=== PATIENT | female | born 1975 | race Caucasian/White ===

== ENCOUNTER 2017-01-12 20:42 | Emergency (ER) | payer OTHER ==
[~2017-01-12] VITALS: Ht 157.5 cm; Wt 72.6 kg
--- NOTE | ~2017-01-12 | CR252 ---
[facility] A Service of [facility] & [facility] RADIOLOGY TEXT RESULTS PATIENT: GRAY BENTLEY LOCATION: CFTX : [id number] UNIT #: [id number] AGE: [address]: Rika España APRN SEX: F ORDER DR: [id number] [facility] [address] [place], [place] [address] [id number] MR#: [id number] Acc #: [id number] NAME: GRAY BENTLEY : 1975 SEX: F STUDY DATE/TIME: 01/12/2017 UNIT: [facility] ROOM: STUDY DESCRIPTION: CR Tibia and Fibula 2 Views Lt Attending Physician: Rika España A.P.R.N. Ordering Physician: Rika España A.P.R.N. Primary Care Physician: Primary Care Physician No MEDICAL IMAGING REPORT This report is preliminary unless electronic signature is present EXAM Left tib-fib 01/13 at 00:09 hours INDICATIONS Leg pain and bruising after fall 3 days ago. FINDINGS There is no evidence of fracture, dislocation, or radiopaque foreign body. IMPRESSION Normal tibia and fibula. Dictated by... Vinicius Perea Jr., M.D. THIS IS AN ELECTRONICALLY VERIFIED REPORT Vinicius Perea Jr., M.D. at 01/13/2017 9:34 PM CADEN/aguilar TD: 01/13/2017 09:29 JOB #: [id number] MEDICAL IMAGING REPORT Page 1 of 1 COPY
[~2017-01-12 20:42] MED LIST: ADVIL200 M3 PO; ASPIRIN PO; AUGMENTIN PO; BENADRYL25 MG PO; FAMOTIDINE PO; FLONASE16 GM; IBUPROFEN PO; K-DUR20 ME1 PO; KENALOG IN ORABA5 GM TOP; KETOPROFEN PO; OMEPRAZOLE20 M2 PO; PRENATAL1 TA1 PO; PROZAC40 MG PO; SALINE NASAL SPRAY; TRAZODONE HCL100 MG PO; ZITHROMAX PO; ZITHROMAX1 G/PKT PO
== END 2017-01-13 00:58 | disposition home or self-care (01) ==
LOC: CFTX 20:42 → CED 20:42 → CFTX 23:17
DX: S80.12XA Contusion of left lower leg, initial encounter (principal); F32.9 Major depressive disorder, single episode, unspecified; W22.8XXA Striking against or struck by other objects, initial encounter; Y92.512 Supermarket, store or market as the place of occurrence of the external cause
CPT/HCPCS: 29540; 73590; 99283